=== PATIENT | male | born 1970 | race Caucasian/White ===

== ENCOUNTER 2017-09-04 09:24 | Emergency (ER) | payer OTHER, MEDICAID, SELFPAY ==
[2017-09-04 09:25] VITALS: BP 150/91; PULSE 82; RESP 20; TEMP 36.6; O2SAT 94; BMI 30.1
--- NOTE | 2017-09-04 09:59 | CT_ITS ---
STUDY: CT BRAIN WITHOUT CONTRAST REASON FOR EXAM: Male, 47 years old. Head injury, laceration RADIATION DOSAGE (If Supplied By Facility): CTDIvol = ( 44.99 ) mGy, DLP = ( 812.98 ) mGycm TECHNIQUE: Transaxial CT imaging of the brain was performed without administration of intravenous contrast material. Sagittal and coronal reconstructed images are provided and reviewed. Individualized dose optimization techniques were used for this CT. COMPARISON: None. FINDINGS: There is soft tissue irregularity over the left posterior parietal scalp. Normal calvarium. There is mild cerebral atrophy with widening of the extra-axial spaces and ventricular dilatation. Normal white matter tracts of the cerebral hemispheres. Normal basal ganglia and thalami. Normal brainstem. Normal cerebellum. There is no intracranial hemorrhage. There are no findings of an acute ischemic infarction. There is mucoperiosteal inflammatory disease of the paranasal sinuses consistent with moderate chronic sinusitis. CT/Brain/Head without Contrast IMPRESSION: Chronic involutional changes. No acute intracranial abnormality. Electronically Signed: Ozzy Fernandez DO at 10:41 EDT Tel , Service support ,
--- NOTE | 2017-09-04 10:11 | ED.DCSUM_ITS ---
- ER Visit Summary Date of Service: 09/04/17 Chief Complaint: [Head injury] History of Present Illness: The patient is a 47 M [who is working on his tractor trailer this morning and swung out from underneath it and hit the back of his head on the pin. There is no loss of consciousness. He really had no symptoms until he felt the bleeding. He arrives from EMS. He has a mild headache. No neck pain no numbness or tingling no nausea or vomiting no other associated symptoms. He has had a bypass surgery and is on aspirin.] Physical Examination: [] Blood pressure 150/91 other vitals within normal limits NC, laceration and contusion to left parietal occiput TMs clear PERRL EOMI MIDFACE STABLE NO DENTAL TRAUMA NECK NONTENDER, FROM WITHOUT PAIN RRR NO MURMURS, RUBS, OR GALLOPS CTAB, CHEST NONTENDER, NO BRUISING ABDOMEN SOFT NONTENDER NORMAL BOWEL SOUNDS, NO ECCHYMOSIS EXTREMITIES WITH NO DEFORMITY, SWELLING OR ECCHYMOSIS, NVIT X4 CRANIAL NERVES IN TACT, NO MOTOR SENSORY DEFICITS BACK WITH NO MIDLINE TENDERNESS Laceration to left occiput Test Results: [] Emergency Department Course and Treatment: [Tetanus was updated. CT of the head was obtained. CT shows no acute process. Patient had a 4 cm full- thickness wound on the left parietal. This was cleaned and repaired see procedure note. Patient was perseverating on a adventist experience and was quite emotional. His arrived and states that he was bipolar has not been taking his medications and has been psychotic for the last week. At that time screening labs were ordered and counseling center will evaluate the patient in the emergency department. He became quite agitated with his and was given Geodon p.o. patient is not homicidal not suicidal his delusions are pleasant.] Procedure Note: Scalp laceration repair 4 cm full thickness, linear irrigated with 500cc normal saline anesthetized with 5 cc lidocaine with epi 5 naty placed with good skin approximation and hemostasis Treatment Plan: [] Disposition: [Pending mental health evaluation] Impression: [1. Closed head injury 2. Scalp laceration with staple repair 3. Belinda with delusions] This note was generated with [employer] software. It may contain incorrect words, spelling, and punctuation that were not noted in review of the chart prior to signing ED Disposition - Plan for ED Patient: Chief Complaint: Head Injury Referrals: Care Physician,No Primary [Primary Care Provider] -
[2017-09-04] MEDS: Diphth,Pertuss(Acell),Tet Vac 0.5 ML Vial IM (10:46)
[2017-09-04 13:00] VITALS: BP 149/96; PULSE 72; RESP 18
[2017-09-04 13:12] LABS: Absolute Lymphocyte Count 1.21 X10^3/ul (0.83-4.51); Absolute Neutrophil Count 4.6 X10^3/uL (2.0-7.7); Basophil# 0.01 X10^3/uL; Basophil% 0.1 % (0-1); Eosinophil# 0.26 X10^3/uL; Eosinophils% 3.9 % (0-5); Hematocrit 41.5 % (40-54); Hemoglobin 14.2 g/dl (13.0-16.5); Lymphocyte # 1.21 X10^3/ul (4.0); Lymphocyte % 18.1 % (19-41); Mean Corp Hgb Conc 34.2 g/gl (32-36); Mean Corpuscular Hgb 30.5 pg (27.0-32.0); Mean Corpuscular Volume 89.2 fL (80-94); Mean Platelet Vol. 10.6 fl (6.2-12.0); Monocyte# 0.55 X10^3/uL; Monocyte% 8.2 % (0-10); Neutrophil # 4.63 X10^3/uL (2.7-7.7); Neutrophil % 69.6 % (47-70); Platelet Count 159 K/mm3 (150-450); RBC Distribution Width CV 12.2 % (11.6-14.6); RBC Distribution Width SD 38.6 fl (35.1-43.9); Red Blood Count 4.65 M/mm3 (4.6-6.2); White Blood Count 6.7 K/mm3 (4.4-11.0)
[2017-09-04 13:14] LABS: POSITIVE COUNT NO; POSITIVE DIFFERENTIAL NO; POSITIVE MORPHOLOGY NO
[2017-09-04 13:21] LABS: Anion Gap 6 (5-15); BUN 13 mg/dL (7-18); BUN/Creat Ratio 15.1 RATIO (10-20); Calcium,Total 8.7 mg/dL (8.5-10.1); Chloride 109 mmol/L (98-107); Creatinine, Serum 0.86 mg/dL (0.70-1.30); EST Glomerular Filtration Rate 101 mL/min (>60); Est Glom Filt Rate - Afr Amer 122 mL/min (>60); Estimated Creatinine Clearance 108.46 ml/min; Glucose 86 mg/dL (74-106); Potassium 3.4 mmol/L (3.5-5.1); Sodium Level 142 mmol/L (136-145)
[2017-09-04 13:34] LABS: Alcohol, Blood (Medical)-Serum < 3.0 mg/dL
[2017-09-04] MEDS: LORazepam 1 MG Tablet PO (13:56)
[2017-09-04 14:17] LABS: Amphetamine Urine VISTA NEGATIVE (<1000 ng/mL); Barbiturate Urine VISTA NEGATIVE (< 200 ng/mL); Benzodiazepine Urine VISTA NEGATIVE (< 200 ng/mL); Cocaine Urine VISTA NEGATIVE (< 300 ng/mL); Ecstacy Urine VISTA NEGATIVE (< 500 ng/mL); Methadone Urine VISTA NEGATIVE (< 300 ng/mL); PCP Urine VISTA NEGATIVE (< 25 ng/mL); THC Urine VISTA NEGATIVE (< 50 ng/mL); Vista UDS pH Range 6
[2017-09-04 15:00] VITALS: RESP 16
--- NOTE | 2017-09-04 21:15 | ED.RN ---
TOOK BELONGINGS HOME, INCLUDING CELL PHONE, WALLET, PANTS, SHIRT, BOOTS.
[2017-09-04 21:22] VITALS: BP 122/63; PULSE 81; RESP 16; O2SAT 98
== END 2017-09-04 21:50 ==
PROVIDERS: Emergency Provider Emergency Medicine
DX: S01.01XA Laceration without foreign body of scalp, initial encounter (principal); F30.8 Other manic episodes; Z23 Encounter for immunization; Z91.14 Patient's other noncompliance with medication regimen; Z95.1 Presence of aortocoronary bypass graft; Z79.82 Long term (current) use of aspirin; Z79.899 Other long term (current) drug therapy; W26.8XXA Contact with other sharp object(s), not elsewhere classified, initial encounter; Y93.89 Activity, other specified; Y92.008 Other place in unspecified non-institutional (private) residence as the place of occurrence of the external cause; Y99.8 Other external cause status
CPT/HCPCS: 12002; 70450; 80048; 80307; 80320; 85025; 90715; 99285; G0480